=== PATIENT | female | born 1980 | race Caucasian/White ===

== ENCOUNTER 2016-11-11 08:15 | Day surgery (SDC) | payer BC ==
--- NOTE | ~2016-11-11 | EGD ---
EGD REPORT [facility] [address] [address] NAME: DAYLIN KUMAR : [birth year] STATUS : REG [facility]#: [id number] AGE: 36 ADM/REG DATE : 11/11/16 MR#: [id number] REPORT SERV DATE: 11/11/16 DICTATED BY: KELLI TENA DATE: 11/11/16 REPORT STATUS : Draft [facility]ANS[facility] BY: [facility] DATE: 11/11/16 [facility] Patient Name: Daylin Kumar Date of : 1980 Attending MD: KELLI TENA MD Procedure Date No Time: 11/11/2016 Procedure: Colonoscopy Indications: Personal history of ulcerative colitis Referring MD: ASIYA FRANCISCO Medicines: as per anesthesia Complications: No immediate complications. Procedure: Pre-Anesthesia Assessment: - ASA Grade Assessment: II - A patient with mild systemic disease. After I obtained informed consent, the scope was passed under direct vision. Throughout the procedure, the patient's blood pressure, pulse, and oxygen saturations were monitored continuously. The PCF [id number] was introduced through the anus and advanced to the cecum, identified by appendiceal orifice and ileocecal valve. The colonoscopy was performed without difficulty. The patient tolerated the procedure. The quality of the bowel preparation was adequate to identify polyps. Findings: The perianal and digital rectal examinations were normal. Internal hemorrhoids were found during endoscopy and were mild. no active colitis Four biopsies were obtained in the rectum, in the sigmoid colon, in the descending colon, in the proximal transverse colon, in the distal transverse colon, in the ascending colon and in the cecum with cold forceps for histology. Impression: - Internal hemorrhoids. - Four biopsies were obtained in the rectum, in the sigmoid colon, in the descending colon, in the proximal transverse colon, in the distal transverse colon, in the ascending colon and in the cecum. Recommendation: - Await pathology results. - Repeat colonoscopy for surveillance based on pathology results. Procedure Code(s): --- Professional --- 40133, Colonoscopy, flexible, proximal to splenic EGD REPORT [address] [address] NAME: DAYLIN KUMAR : [birth year] STATUS : REG [facility]#: [id number] AGE: 36 ADM/REG DATE : 11/11/16 MR#: [id number] REPORT SERV DATE: 11/11/16 DICTATED BY: KELLI TENA DATE: 11/11/16 REPORT STATUS : Draft TRANSCRIBED BY: [employer] DATE: 11/11/16 flexure; with biopsy, single or multiple Diagnosis Code(s): --- Professional --- K64.8, Other hemorrhoids Z87.19, Personal history of other diseases of the digestive system CPT copyright 2013 [employer]. All rights reserved. The codes documented in this report are preliminary and upon hand candle dipper review may be revised to meet current compliance requirements. KELLI TENA MD 11/11/2016 10:36 AM This report has been signed electronically. Number of Addenda: 0 Note Initiated On: 11/11/2016 9:57 AM Scope Withdrawal Time 0 hours 13 minutes [address] [place] [id number]
[~2016-11-11 08:15] MED LIST: ALEVE220 MG PO; ALLEGRA180 PO; APRISO0.375 GM PO; ASACOL PO; B121000P IM; BENTYL10 PO; CANASA1SUP PR; FISH-EPA1000 MG PO; FL250 PO; LEVSINTAB PO; LIBRAX PO; MULTIVIT/MIN PO; MULTIVITAMI1 PO; NASONEX NAS; ORTHO TRI- PO; OS500+D PO; PROZAC PO; SPRINTEC 2828 DAY PO; TOPXL25 PO; TRI-SPRINTEC PO; X25 PO; [UNRECOGNIZED DRUG - OTHER] PO
== END 2016-11-11 23:59 | disposition home or self-care (01) ==
LOC: DMU 08:15
PROVIDERS: Internal Medicine Gastroenterology
PROC: 0DBH8ZX Excision of Cecum, Via Natural or Artificial Opening Endoscopic, Diagnostic (ICD-10-PCS; 2016-11-11)
PROC: 0DBK8ZX Excision of Ascending Colon, Via Natural or Artificial Opening Endoscopic, Diagnostic (ICD-10-PCS; 2016-11-11)
PROC: 0DBL8ZX Excision of Transverse Colon, Via Natural or Artificial Opening Endoscopic, Diagnostic (ICD-10-PCS; 2016-11-11)
PROC: 0DBM8ZX Excision of Descending Colon, Via Natural or Artificial Opening Endoscopic, Diagnostic (ICD-10-PCS; 2016-11-11)
PROC: 0DBN8ZX Excision of Sigmoid Colon, Via Natural or Artificial Opening Endoscopic, Diagnostic (ICD-10-PCS; 2016-11-11)
PROC: 0DBP8ZX Excision of Rectum, Via Natural or Artificial Opening Endoscopic, Diagnostic (ICD-10-PCS; principal; 2016-11-11 09:30)
DX: K64.8 Other hemorrhoids (principal); Z79.899 Other long term (current) drug therapy; K51.90 Ulcerative colitis, unspecified, without complications; G43.909 Migraine, unspecified, not intractable, without status migrainosus; J45.909 Unspecified asthma, uncomplicated; F41.9 Anxiety disorder, unspecified; F32.9 Major depressive disorder, single episode, unspecified; Z88.2 Allergy status to sulfonamides; Z88.8 Allergy status to other drugs, medicaments and biological substances; Z88.1 Allergy status to other antibiotic agents
CPT/HCPCS: 84703; 88305